=== PATIENT | female | born 1940 | race Two or more races ===

== ENCOUNTER 2019-06-08 19:17 | Inpatient (IN) | payer MEDICAID, OTHER ==
[~2019-06-08] VITALS: Ht 162.6 cm; Wt 59.0 kg
[2019-06-08] MEDS ORDERED: SODIUM CHLORIDE 0.9% 1,000 ML IV ONE (20:00)
[2019-06-08] MEDS ORDERED: ONDANSETRON HCL 4MG/2ML INJ IV ONE (20:00)
[2019-06-08 21:03] LABS: HEMATOCRIT. 36.2 % (36.0-48.0); HEMOGLOBIN. 12.2 g/dL (12.0-16.0); MEAN CORPUSCULAR HEMOGLOBIN 29.1 pg (28.0-32.0); MEAN CORPUSCULAR VOLUME 86.6 fL (81.0-99.0); PLATELET 322 x1000/uL (130-400); RED BLOOD CELL COUNT 4.19 mill/uL (4.2-5.4); RED CELL DISTRIBUTION WIDTH 14.1 % (11.6-14.6)
[2019-06-08 21:21] LABS: CHLORIDE 101 mEq/L (98-107)
[2019-06-08] MEDS ORDERED: PANTOPRAZOLE SODIUM 40 MG/VIAL IV ONE (22:00)
[2019-06-08 22:12] LABS: PLATELET ESTIMATE NORMAL
[2019-06-08 22:24] LABS: CLARITY URINE TURBID (CLEAR); COLOR URINE YELLOW (YELLOW); KETONES URINE NEGATIVE (NEGATIVE); LEUKOCYTE ESTERASE URINE 3+ (NEGATIVE); NITRITE URINE NEGATIVE (NEGATIVE); OCCULT BLOOD URINE 3+ (NEGATIVE); PROTEIN URINE 3+ (NEGATIVE); SPECIFIC GRAVITY URINE 1.016 (1.005-1.030); UROBILINOGEN URINE 0.2 E.U./dL (0.2-1.0)
[2019-06-08] MEDS ORDERED: CEFTRIAXONE 1 G PREMIX 50 ML IV ONE (23:15)
[2019-06-08] MEDS ORDERED: MORPHINE SULFATE 2 MG/ML CPJ (NOT FOR IM USE) IV ONE (23:45)
[2019-06-09] MEDS ORDERED: SODIUM CHLORIDE 0.9% 1,000 ML IV ONE (00:30)
[2019-06-09] MEDS ORDERED: IOHEXOL-300 100 ML BOTTLE ONE (01:26)
[2019-06-09 04:00] VITALS: BP 118/67
[2019-06-09] MEDS ORDERED: DEXTROSE 50% WATER 50ML SYRINGE IV PRN ×2 (05:00)
[2019-06-09] MEDS ORDERED: MORPHINE SULFATE 2 MG/ML CPJ (NOT FOR IM USE) IV PRN (05:15)
[2019-06-09] MEDS ORDERED: ACETAMINOPHEN 325MG TABLET PO PRN (05:15)
[2019-06-09] MEDS: BLOOD SUGAR DIAGNOSTIC STRIP TEST SCH ×4 (06:08→20:41)
[2019-06-09] MEDS: INSULIN LISPRO 100 UNITS/ML SUBCUT SCH ×4 (06:39→20:47)
[2019-06-09] MEDS ORDERED: ONDANSETRON HCL 4MG/2ML INJ IV PRN (07:45)
[2019-06-09 08:00] VITALS: BP 125/49
[2019-06-09] MEDS ORDERED: ENOXAPARIN 40MG/0.4ML SYR SUBCUT SCH (09:00)
[2019-06-09] MEDS: ENOXAPARIN 30MG/0.3ML SYR SUBCUT SCH (09:06)
[2019-06-09] MEDS: SODIUM CHLORIDE 0.9% 1,000 ML IV SCH ×2 (09:14→20:45)
[2019-06-09 10:36] LABS: HEMATOCRIT. 33.5 % (36.0-48.0); MEAN CORPUSCULAR HEMOGLOBIN 28.4 pg (28.0-32.0); MEAN CORPUSCULAR VOLUME 86.4 fL (81.0-99.0); MEAN PLATELET VOLUME 7.3 fl (7.4-10.4); PLATELET 308 x1000/uL (130-400); RED BLOOD CELL COUNT 3.88 mill/uL (4.2-5.4); RED CELL DISTRIBUTION WIDTH 14.1 % (11.6-14.6)
[2019-06-09 12:00] VITALS: BP 134/54
[2019-06-09 13:06] LABS: PLATELET ESTIMATE NORMAL
[2019-06-09 16:00] VITALS: BP 122/62
[2019-06-09 20:00] VITALS: BP 130/67
[2019-06-09] MEDS: INSULIN GLARGINE UD 100 UNITS/ML SYR SUBCUT SCH (22:31)
[2019-06-10] VITALS: BP 139/75
[2019-06-10] MEDS ORDERED: CEFTRIAXONE 1 G PREMIX 50 ML IV SCH
[2019-06-10] MEDS ORDERED: CEFTRIAXONE 1,000 MG in DEXTROSE 5% WATER 50 ML IV SCH ×2 (00:45→01:00)
[2019-06-10 04:00] VITALS: BP 147/69
[2019-06-10] MEDS: SODIUM CHLORIDE 0.9% 1,000 ML IV SCH ×2 (06:05→23:45)
[2019-06-10] MEDS: BLOOD SUGAR DIAGNOSTIC STRIP TEST SCH ×4 (06:46→21:15)
[2019-06-10] MEDS: INSULIN LISPRO 100 UNITS/ML SUBCUT SCH ×4 (06:47→22:10)
[2019-06-10 07:27] LABS: BASOPHILS % 0.2 % (0.0-2.0); EOSINOPHILS % 0.4 % (0.0-5.0); HEMATOCRIT. 28.4 % (36.0-48.0); HEMOGLOBIN. 9.5 g/dL (12.0-16.0); MEAN CORPUSCULAR HEMOGLOBIN 28.7 pg (28.0-32.0); MEAN CORPUSCULAR VOLUME 85.6 fL (81.0-99.0); MEAN PLATELET VOLUME 7.2 fl (7.4-10.4); MONOCYTES % 3.8 % (2.0-8.0); NEUTROPHILS % 86.6 % (40.0-76.0); PLATELET 259 x1000/uL (130-400); RED BLOOD CELL COUNT 3.31 mill/uL (4.2-5.4)
[2019-06-10 08:00] VITALS: BP 143/68
[2019-06-10] MEDS: INSULIN GLARGINE UD 100 UNITS/ML SYR SUBCUT SCH ×2 (10:13→22:08)
[2019-06-10] MEDS: ENOXAPARIN 30MG/0.3ML SYR SUBCUT SCH (10:14)
[2019-06-10 12:00] VITALS: BP_SYST 143; BP_SYST 158; BP_DIAS 75; BP_DIAS 82
[2019-06-10 16:00] VITALS: BP 145/70
[2019-06-10] MEDS ORDERED: CEFAZOLIN 1000MG PREMIX 50 ML IV SCH (16:00)
[2019-06-10 20:00] VITALS: BP 161/84
[2019-06-10] MEDS ORDERED: LACTULOSE 20G/30ML UDC PO PRN (20:30)
[2019-06-10] MEDS: CEFAZOLIN 1000MG PREMIX 50 ML IV SCH (21:34)
[2019-06-11] VITALS (8 sets, daily range): BP systolic 129–182; BP diastolic 70–89
[2019-06-11] MEDS: SODIUM CHLORIDE 0.9% 1,000 ML IV SCH (06:23)
[2019-06-11] MEDS: CEFAZOLIN 1000MG PREMIX 50 ML IV SCH ×3 (06:25→21:36)
[2019-06-11] MEDS: BLOOD SUGAR DIAGNOSTIC STRIP TEST SCH ×4 (06:45→21:20)
[2019-06-11 07:15] LABS: BASOPHILS % 0.3 % (0.0-2.0); EOSINOPHILS % 1.1 % (0.0-5.0); HEMATOCRIT. 30.1 % (36.0-48.0); HEMOGLOBIN. 10.1 g/dL (12.0-16.0); LYMPHOCYTES % 10.7 % (20.0-50.0); MEAN CORPUSCULAR HEMOGLOBIN 28.8 pg (28.0-32.0); MEAN CORPUSCULAR VOLUME 85.9 fL (81.0-99.0); MEAN PLATELET VOLUME 7.1 fl (7.4-10.4); MONOCYTES % 3.5 % (2.0-8.0); NEUTROPHILS % 84.4 % (40.0-76.0); PLATELET 258 x1000/uL (130-400); RED BLOOD CELL COUNT 3.51 mill/uL (4.2-5.4); RED CELL DISTRIBUTION WIDTH 14.4 % (11.6-14.6)
[2019-06-11] MEDS: INSULIN LISPRO 100 UNITS/ML SUBCUT SCH ×4 (07:15→21:37)
[2019-06-11] MEDS: ENOXAPARIN 30MG/0.3ML SYR SUBCUT SCH (08:47)
[2019-06-11] MEDS: INSULIN GLARGINE UD 100 UNITS/ML SYR SUBCUT SCH ×2 (10:23→21:36)
[2019-06-11] MEDS ORDERED: SODIUM BICARBONATE 4% (2.4MEQ) 5ML VIAL IV ONE (14:17)
[2019-06-11] MEDS ORDERED: LIDOCAINE HCL 1% 20ML VIAL (Pyxis) INJ ONE (14:17)
[2019-06-11] MEDS: METOPROLOL TARTRATE 50MG TABLET PO SCH (23:14)
[2019-06-12] VITALS: BP 157/83
[2019-06-12] MEDS: SODIUM CHLORIDE 0.9% 1,000 ML IV SCH ×2 (02:25→20:38)
[2019-06-12 04:00] VITALS: BP 164/83
[2019-06-12] MEDS: CEFAZOLIN 1000MG PREMIX 50 ML IV SCH ×3 (05:50→21:30)
[2019-06-12] MEDS: BLOOD SUGAR DIAGNOSTIC STRIP TEST SCH ×4 (05:50→21:24)
[2019-06-12] MEDS ORDERED: METF-414 PO (06:39)
[2019-06-12] MEDS ORDERED: PROCARDIA PO (06:40)
[2019-06-12] MEDS ORDERED: ENALAPRIL PO (06:41)
[2019-06-12] MEDS: INSULIN LISPRO 100 UNITS/ML SUBCUT SCH ×4 (06:42→21:00)
[2019-06-12] MEDS ORDERED: JANUVIA PO (06:42)
[2019-06-12] MEDS ORDERED: CLONIDINE 0.1MG TABLET PO PRN (06:45)
[2019-06-12] MEDS: AMLODIPINE 10MG TABLET PO SCH (06:58)
[2019-06-12 08:00] VITALS: BP 170/93
[2019-06-12] MEDS: ENOXAPARIN 30MG/0.3ML SYR SUBCUT SCH (08:42)
[2019-06-12] MEDS: METOPROLOL TARTRATE 50MG TABLET PO SCH ×2 (08:42→21:16)
[2019-06-12] MEDS ORDERED: AMLODIPINE 10MG TABLET PO SCH (09:00)
[2019-06-12] MEDS: INSULIN GLARGINE UD 100 UNITS/ML SYR SUBCUT SCH ×2 (10:00→22:52)
[2019-06-12] MEDS ORDERED: CARB15DR EACHEYE (10:24)
[2019-06-12] MEDS ORDERED: BRIM5DRO6 EACHEYE (10:24)
[2019-06-12] MEDS ORDERED: LATA2.5D2 EACHEYE (10:24)
[2019-06-12 12:00] VITALS: BP 134/61
[2019-06-12 14:38] VITALS: BP 116/61
[2019-06-12 20:00] VITALS: BP 146/60
[2019-06-12] MEDS ORDERED: LATANOPROST 0.005% OPHTH DROPS 2.5ML EACHEYE SCH (21:00)
[2019-06-12] MEDS: POLYVINYL ALCOHOL OPHTH DROPS 15ML BOTHEYE SCH (21:18)
[2019-06-12] MEDS: BRIMONIDINE 0.2% OPHTH DROPS 5ML EACHEYE SCH ×2 (22:39→22:42)
[2019-06-13 00:25] VITALS: BP 133/62
[2019-06-13 04:00] VITALS: BP 136/63
[2019-06-13] MEDS: CEFAZOLIN 1000MG PREMIX 50 ML IV SCH (05:53)
[2019-06-13] MEDS: BRIMONIDINE 0.2% OPHTH DROPS 5ML EACHEYE SCH (05:53)
[2019-06-13] MEDS: SODIUM CHLORIDE 0.9% 1,000 ML IV SCH (05:54)
[2019-06-13] MEDS: BLOOD SUGAR DIAGNOSTIC STRIP TEST SCH (07:58)
[2019-06-13] MEDS ORDERED: LEVO750T21 MT (08:58)
[2019-06-13] MEDS: ENOXAPARIN 30MG/0.3ML SYR SUBCUT SCH (09:20)
[2019-06-13] MEDS: METOPROLOL TARTRATE 50MG TABLET PO SCH (09:22)
[2019-06-13] MEDS: INSULIN LISPRO 100 UNITS/ML SUBCUT SCH (09:22)
[2019-06-13] MEDS: AMLODIPINE 10MG TABLET PO SCH (09:23)
[2019-06-13] MEDS: POLYVINYL ALCOHOL OPHTH DROPS 15ML BOTHEYE SCH (09:24)
[2019-06-13] MEDS: INSULIN GLARGINE UD 100 UNITS/ML SYR SUBCUT SCH (10:56)
== END 2019-06-13 14:30 | disposition home or self-care (01) | DRG 720 ==
LOC: ER 19:17 → 5WST 23:41 → EDBEDREQTM 23:56 → EDBEDREQ 23:56 → ENRESERV 06-09 02:25 → 6EST 06-12 14:37
PROVIDERS: ADMIT Internal Medicine; ATTEND Internal Medicine
PROC: 02H633Z Insertion of Infusion Device into Right Atrium, Percutaneous Approach (ICD-10-PCS; principal; 2019-06-11)
PROC: B5181ZA Fluoroscopy of Superior Vena Cava using Low Osmolar Contrast, Guidance (ICD-10-PCS; 2019-06-11)
PROC: B548ZZA Ultrasonography of Superior Vena Cava, Guidance (ICD-10-PCS; 2019-06-11)
DX: A41.51 Sepsis due to Escherichia coli [E. coli] (principal); N17.0 Acute kidney failure with tubular necrosis; N39.0 Urinary tract infection, site not specified; C67.9 Malignant neoplasm of bladder, unspecified; B96.20 Unspecified Escherichia coli [E. coli] as the cause of diseases classified elsewhere; E11.9 Type 2 diabetes mellitus without complications; N13.6 Pyonephrosis; E78.00 Pure hypercholesterolemia, unspecified; E78.5 Hyperlipidemia, unspecified; I10 Essential (primary) hypertension
CPT/HCPCS: 36415; 36573; 71045; 74177; 76937; 80048; 80053; 80061; 81003; 82962; 83036; 83605; 83735; 83880; 84484; 85025; 87077; 87106; 87186; 93005; 93970; 97162; 99291; C1725; C9113; J0690; J0696; J1650; J1815; J2270; J2405; J3490; J7030; J7060; Q9967